=== PATIENT | female | born 1980 ===

== ENCOUNTER 2018-07-17 07:54 | Day surgery (SDC) | payer OTHER ==
[2018-07-17] VITALS (15 sets, daily range): BP systolic 74–118; BP diastolic 38–75; PULSE 56–78; TEMP 98.5–98.7
[~2018-07-17] VITALS: Ht 152.5 cm; Wt 100.0 kg
[2018-07-17 08:52] LABS: HEMATOCRIT 42.9 % (37.0-47.0); HEMOGLOBIN 14.1 g/dl (12.5-16.0); MEAN CELL VOLUME 91 fl (80.0-100.0); MEAN CORPUSCULAR HEMOGLOBIN 30 pg (27.0-31.0); MEAN CORPUSCULAR HGB CONC 33 g/dl (33.0-37.0); MEAN PLATELET VOLUME 11.2 fl (7.4-10.4); PLATELET COUNT 234 K/mm3 (130-400); RED BLOOD COUNT 4.71 M/mm3 (4.10-5.30); REDCELL DISTRIBUTION WIDTH-CV 13.5 % (11.5-14.5)
[2018-07-17 08:54] LABS: PROTHROMBIN TIME 11.2 SECONDS (9.7-12.8)
[2018-07-17] MEDS ORDERED: ZYRTEC 10MG10 MG PO (08:56)
[2018-07-17] MEDS ORDERED: MASON NATURAL2000 IU PO (08:57)
[2018-07-17] MEDS ORDERED: SINGULAIR 110 MG/TAB PO (08:58)
[2018-07-17] MEDS ORDERED: BENADRYL25 M2 PO (08:59)
[2018-07-17 09:04] LABS: CALCIUM 8.8 mg/dL (8.4-10.2); CREATININE, serum 0.62 mg/dL (0.52-1.25); POTASSIUM 3.8 mmol/L (3.4-5.0)
== END 2018-07-17 15:59 | disposition home or self-care (01) ==
LOC: COL.CAR 07:54
PROVIDERS: Internal Medicine Cardiovascular Disease
DX: R07.89 Other chest pain (principal); R06.00 Dyspnea, unspecified; Z79.899 Other long term (current) drug therapy; R94.39 Abnormal result of other cardiovascular function study
CPT/HCPCS: C1760; C1894; J1644; J2250; J3010